=== PATIENT | female | born 1960 | race Caucasian/White ===

== ENCOUNTER 2017-10-19 07:53 | Emergency (ER) | payer BC ==
[~2017-10-19] VITALS: Ht 160 cm; Wt 77.1 kg
--- NOTE | 2017-10-19 11:24 | Diagnostic Imaging Report ---
PROCEDURE:X-RAY LEFT ELBOW, COMPLETE COMPARISON:None. INDICATIONS:LEFT ELBOW PAIN FINDINGS: No evidence of fracture, dislocation, or joint effusion. The bones are well-mineralized. The soft-tissues are unremarkable. The joint spaces are preserved. CONCLUSION: No evidence of fracture or malalignment. Dictated by: NICOLASA VALENCIA M.D. on 10/19/2017 at 9:53 Electronically approved by: NICOLASA VALENCIA M.D. on 10/19/2017 at 9:53
== END 2017-10-19 10:35 | disposition home or self-care (01) ==
LOC: ER 07:53
DX: M25.522 Pain in left elbow (principal); S50.02XA Contusion of left elbow, initial encounter; W20.8XXA Other cause of strike by thrown, projected or falling object, initial encounter; Y92.512 Supermarket, store or market as the place of occurrence of the external cause; I10 Essential (primary) hypertension
CPT/HCPCS: 99283

== ENCOUNTER 2018-05-10 23:40 | Emergency (ER) | payer BC ==
[~2018-05-10] VITALS: Ht 160 cm; Wt 77.1 kg
--- OUTSIDE RECORDS SUMMARY | 2018-05-10 23:44 | XMS REPORT | Clinical Summary ---
Author Author [facility] Organization [facility] Address Unknown Phone Unavailable Care Team Providers Care [employer] C[employer] Supervisor Name Role Phone Praneeth Aquino MD PCP Allergies Comments Active Allergy Reactions Severity Noted Date Hydrochlorothiazide Hives, Rash, 02/09/2017 Itching Only gets reaction when she personally wears them, she does get rash when other people use them on her Latex Rash 01/29/2015 Penicillins Itching 08/19/2014 Medications End Date Status Medication Sig Dispensed Refills Start Date Active meclizine (ANTIVERT) 25 Take 1 tablet 10 tablet 0 201 mg TabIndications: Dizzy, by mouth 2 6 Vertigo times daily as needed for dizziness. Active atorvastatin (LIPITOR) 20 Take 1 tablet 90 tablet 1 201 mg tabletIndications: by mouth at 6 Dyslipidemia bedtime nightly. Active cyclobenzaprine Take 1 tablet 30 tablet 0 (FLEXERIL) 10 mg by mouth 3 7 tabletIndications: Acute times daily pain of right shoulder as needed for Muscle Spasms. Active ondansetron (ZOFRAN) 4 mg Take 1 tablet 5 tablet 0 tabletIndications: by mouth 7 Intractable chronic every 8 hours migraine without aura and as needed for without status Nausea. migrainosus Active ibuprofen (MOTRIN) 800 mg Take 1 tablet 45 tablet 1 tabletIndications: by mouth 8 Intractable chronic every 8 hours migraine without aura and as needed for without status Pain. migrainosus Active SUMAtriptan (IMITREX) 25 Take 1 tablet 9 tablet 2 mg tabletIndications: by mouth at 8 Intractable chronic onset of migraine without aura and headache. without status Repeat after migrainosus 2 hours if needed. Maximum 200mg/24 hours.. Active amLODIPine (NORVASC) 5 mg Take 1 tablet 90 tablet 1 tabletIndications: by mouth 8 Hypertension, unspecified daily. type Active traMADol (ULTRAM) 50 mg Take 1 tablet 30 tablet 0 tabletIndications: by mouth 8 Post-op pain every 6 hours as needed for Pain. Active cetirizine (ZYRTEC) 10 mg Take 1 tablet 90 tablet 0 tabletIndications: Runny by mouth 8 nose daily. 12/20/2017 Discontinued ibuprofen (MOTRIN) 800 mg Take 1 tablet 45 tablet 1 tabletIndications: by mouth 7 Chronic right shoulder every 8 hours pain as needed for Pain. 12/20/2017 Discontinued SUMAtriptan (IMITREX) 25 Take 1 tablet 9 tablet 2 mg tabletIndications: by mouth at 7 Intractable chronic onset of migraine without aura and headache. without status Repeat after migrainosus 2 hours if needed. Maximum 200mg/24 hours.. 01/18/2018 Discontinued cetirizine (ZYRTEC) 10 mg Take 1 tablet 90 tablet 0 tabletIndications: Runny by mouth 7 nose daily. 12/20/2017 Discontinued amLODIPine (NORVASC) 5 mg Take 1 tablet 90 tablet 1 tablet by mouth 8 daily. 12/20/2017 Discontinued amLODIPine (NORVASC) 5 mg Take 1 tablet 90 tablet 1 tabletIndications: by mouth 8 Hypertension, unspecified daily. type 12/20/2017 Discontinued SUMAtriptan (IMITREX) 25 Take 1 tablet 9 tablet 2 mg tabletIndications: by mouth at 8 Intractable chronic onset of migraine without aura and headache. without status Repeat after migrainosus 2 hours if needed. Maximum 200mg/24 hours.. 12/20/2017 Discontinued ibuprofen (MOTRIN) 800 mg Take 1 tablet 45 tablet 1 tabletIndications: by mouth 8 Intractable chronic every 8 hours migraine without aura and as needed for without status Pain. migrainosus 12/20/2017 Discontinued ibuprofen (MOTRIN) 800 mg Take 1 tablet 45 tablet 1 tabletIndications: by mouth 8 Intractable chronic every 8 hours migraine without aura and as needed for without status Pain. migrainosus 12/20/2017 Discontinued SUMAtriptan (IMITREX) 25 Take 1 tablet 9 tablet 2 201 mg tabletIndications: by mouth at 8 Intractable chronic onset of migraine without aura and headache. without status Repeat after migrainosus 2 hours if needed. Maximum 200mg/24 hours.. 12/20/2017 Discontinued amLODIPine (NORVASC) 5 mg Take 1 tablet 90 tablet 1 tabletIndications: by mouth 8 Hypertension, unspecified daily. type Active Problems Problem Noted Date Trigger ring finger of right hand 01/07/2018 Overview: Added automatically from request for surgery [id number] Hypertension 12/20/2017 Intractable chronic migraine without aura and without status migrainosus: 12/20/2017 for yrs: meds given ///f/u with PCP as scheduled 06/26 Acute pain of right shoulder 08/31/2016 Mass of wrist 07/06/2015 Vertigo 10/29/2014 Dizzy 10/28/2014 Headache 10/28/2014 Resolved Problems Problem Noted Date Resolved Date Trigger ring finger of left hand 02/20/2017 02/04/2018 Encounters Care Team Description Date Type Specialty Brandon Sharp MD Lateral epicondylitis of left elbow (Primary Dx) 05/03/2018 Office Visit Family Practice 05/03/2018 Travel Praneeth Aquino MD 04/22/2018 Hospital Radiology Encounter 04/22/2018 Travel Praneeth Aquino MD Left elbow pain (Primary Dx) 04/03/2018 Orders Only Family Practice 04/03/2018 Travel Khushi Martel Colon Cancer Screening (Education on FIT completion) 02/27/2018 Telephone Gastroenterology Praneeth Aquino MD Preventative health care 02/26/2018 Lab Appointment Lab Praneeth Aquino MD Left elbow pain (Primary Dx); Snoring; Preventative health care 02/18/2018 Office Visit Family Practice 02/18/2018 Travel Grey Croft MD Trigger ring finger of left hand (Primary Dx) 02/04/2018 Office Visit Orthopedics Ruba Joaquin RN 01/28/2018 Nurse Triage Grey Croft MD Right ring finger trigger digit release 01/19/2018 Surgery Mitchell, Resident JuanAL 01/19/2018 Anesthesia Event Grey Croft MD Trigger ring finger of right hand (Primary Dx); Dizzy; Vertigo; Acute pain of right shoulder; Trigger ring finger of left hand; Intractable chronic migraine without aura and without status migrainosus: for yrs: meds given ///f/u with PCP as scheduled 06/2601/19/2018 Hospital Encounter Praneeth Aquino MD Left elbow pain (Primary Dx); Essential hypertension: will monitor; Runny nose 01/18/2018 Office Visit Family [facility], Resident Son Reid MD 01/14/2018 Hospital Encounter Grey Croft MD Chrane, Kelsey D, PA Trigger ring finger of right hand (Primary Dx); Post-op pain 01/14/2018 Office Visit Orthopedics Grey Croft MD Trigger ring finger of right hand (Primary Dx) 01/07/2018 Office Visit Orthopedics Breana Miranda NP 12/20/2017 Ancillary Radiology Procedure Breana Miranda NP Hypertension, unspecified type (Primary Dx); Need for influenza vaccination; Need for Tdap vaccination; Dietary counseling for Above / Below Normal BMI; Exercise counseling for Above Normal BMI Only!; Intractable chronic migraine without aura and without status migrainosus: for yrs: meds given ///f/u with PCP as scheduled 06/26 ; Left elbow pain; Screen for colon cancer 12/20/2017 Office Visit Family Practice Praneeth Aquino MD Chronic right shoulder pain; Intractable chronic migraine without aura and without status migrainosus: for yrs: meds given ///f/u with PCP as scheduled 06/2612/20/2017 Refill Family Practice Brandon Sharp MD Chronic right shoulder pain; Intractable chronic migraine without aura and without status migrainosus: for yrs: meds given ///f/u with PCP as scheduled 06/2612/20/2017 Refill Family Practice Grey Croft MD NO SHOW ENCOUNTER (Primary Dx) 12/17/2017 Office Visit Orthopedics after 05/09/2017 Immunizations Name Dates Previously Given Next Due Influenza Vaccine 11/10/2014 Influenza Vaccine, 01/25/2017 Seasonal, Injectable Influenza, 01/18/2018 Vaccine<FLUCELVAX>(Multi- Dose) Tdap (Tetanus Toxoid, 01/18/2018 (Deferred: Patient Refused) Reduced Diphtheria Toxoid And Acellular Pertussis, Absorbed) Family History Medical History Relation Name Comments Asthma Daughter Cancer Maternal Aunt UNKNOWN Cancer Maternal Aunt Hypertension Maternal Grandmother Arthritis Mother Asthma Mother Diabetes Mother Hypertension Mother Arthritis Sister Asthma Sister Relation Name Status Comments Brother Brother Alive Brother Alive Daughter Alive Daughter Father Alive Maternal Aunt Maternal Aunt Maternal Grandfather Maternal Grandmother Alive Mother Alive Paternal Grandfather Paternal Grandmother Alive Sister Alive Sister Sister Son Alive Social History Date Tobacco Use Types Packs/Day Years Used Never Smoker Smokeless Tobacco: Never Used Tobacco Cessation: Counseling Given: No Alcohol Use Drinks/Week oz/Week Comments No Sex Assigned at Date Recorded Not on file Industry Job Start Date Occupation Not on file Not on file Not on file Travel End Travel History Travel Start No recent travel history available. Last Filed Vital Signs Time Taken Vital Sign Reading 05/03/2018 9:37 AM ANGIOGRAPHY NURSE Blood Pressure 155/94 05/03/2018 9:37 AM ANGIOGRAPHY NURSE Pulse 78 05/03/2018 9:37 AM ANGIOGRAPHY NURSE Temperature 36.7 C (98 F) 05/03/2018 9:37 AM ANGIOGRAPHY NURSE Respiratory Rate 18 01/19/2018 11:15 AM ANGIOGRAPHY NURSE Oxygen Saturation 99% - Inhaled Oxygen - Concentration 05/03/2018 9:37 AM ANGIOGRAPHY NURSE Weight 84.6 kg (186 lb 9.6 oz) 05/03/2018 9:37 AM ANGIOGRAPHY NURSE Height 160 cm (5' 3") 05/03/2018 9:37 AM ANGIOGRAPHY NURSE Body Mass Index 33.05 Plan of Treatment Health Maintenance Due Date Last Done Comments Colorectal Cancer Scrn 2012 Annual (FIT/FOBT) Age 50 to 75 Breast Cancer Scrn 01/17/2018 01/17/2017, 09/29/2014 (Yearly) Cervical Cancer Scrn (3 01/18/2020 01/17/2017 Yrs) Goals Goal Patient Associated Recent Progress Patient-Stat Author Goal Type Problems ed? Eat Healthy Lifestyle No Jazmin Tuttle Procedures Comments Procedure Name Priority Date/Time Associated Diagnosis MRI ELBOW JOINT W/O Routine 04/22/2018 Left elbow pain CONTRAST 12:50 PM ANGIOGRAPHY NURSE UREA NITROGEN/CREA Routine 04/03/2018 Left elbow pain 12:50 PM ANGIOGRAPHY NURSE CREATININE Routine 02/26/2018 Left elbow pain 10:04 AM ANGIOGRAPHY NURSE MICROALBUM, URINE Routine 02/26/2018 [facility] care 10:03 AM ANGIOGRAPHY NURSE TSH Routine 02/26/2018 [facility] care 10:03 AM ANGIOGRAPHY NURSE LIVER PROFILE Routine 02/26/2018 [facility] health care 10:03 AM ANGIOGRAPHY NURSE BASIC METABOLIC PANEL Routine 02/26/2018 [facility] health care 10:03 AM ANGIOGRAPHY NURSE LIPID PROFILE Routine 02/26/2018 [facility] health care 10:03 AM ANGIOGRAPHY NURSE HEMOGLOBIN A1C Routine 02/26/2018 [facility] care 10:03 AM ANGIOGRAPHY NURSE CBC/DIFF Routine 02/26/2018 [facility] care 10:03 AM ANGIOGRAPHY NURSE ORTHO - EXTREMITY CART 01/19/2018 Trigger ring finger of 10:58 AM ANGIOGRAPHY NURSE right hand Special Needs Anesthesia Fast Track (ASA 2)Supine, hand table XRAY ELBOW 2 VIEWS MIN Routine 12/20/2017 Left elbow pain 1:40 PM CDT after 05/09/2017 Results * MRI ELBOW JOINT W/O CONTRAST (04/22/2018 12:50 PM ANGIOGRAPHY NURSE) Impressions Performed At IMPRESSION: [facility] Findings most consistent with acute on chronic lateral epicondylitis. Dictated By: Pelon Escamilla MD, 04/22/2018 1:55 PM I have reviewed the study and agree with the findings in this report. Signed By: Moises Walls DO, 04/22/2018 3:56 PM Narrative Performed At TECHNIQUE: SMS Magnetic resonance imaging of the left ELBOW was performedWITHOUT injected contrast. HISTORY:Left elbow pain and swelling COMPARISON: Elbow radiographs from 12/20/2017 DISCUSSION: Ligaments and tendons: The radial collateral ligament and common extensor tendon are thickened, but intact throughout. No edema in the lateral humeral condyle or capitellum. Ulnar nerve: Unremarkable Bone and bone marrow:There is no evidence of a fracture.No focal or infiltrative bone marrow replacing abnormality identified. Articular cartilage: No focal defect. Other soft tissues: Unremarkable Procedure Note Interface, Rad/Mammog In - 04/22/2018 4:02 PM ANGIOGRAPHY NURSE TECHNIQUE: Magnetic resonance imaging of the left ELBOW was performed WITHOUT injected contrast. HISTORY: Left elbow pain and swelling COMPARISON: Elbow radiographs from 12/20/2017 DISCUSSION: Ligaments and tendons: The radial collateral ligament and common extensor tendon are thickened, but intact throughout. No edema in the lateral humeral condyle or capitellum. Ulnar nerve: Unremarkable Bone and bone marrow: There is no evidence of a fracture. No focal or infiltrative bone marrow replacing abnormality identified. Articular cartilage: No focal defect. Other soft tissues: Unremarkable IMPRESSION IMPRESSION: Findings most consistent with acute on chronic lateral epicondylitis. Dictated By: Pelon Escamilla MD, 04/22/2018 1:55 PM I have reviewed the study and agree with the findings in this report. Signed By: Moises Walls DO, 04/22/2018 3:56 PM Performing Organization Address City/[facility]/[employer] Phone Number SMS * UREA NITROGEN/CREA (04/03/2018 12:50 PM ANGIOGRAPHY NURSE) Urea Nitrogen 11 7 - 25 mg/dL [facility] 1 Creatinine 0.50 (L) 0.6 - 1.2 mg/dL [facility] 1 GFR, Estimated >60 mL/min/1.73 m2 BT [facility] 1 GFR, Estim, >60 mL/min/1.73 m2 [facility] Afr-Am 1 Specimen Other (Specify in Comments) Performing Organization Address [facility] Phone Number MISYS [facility] 1 * CREATININE (02/26/2018 10:04 AM ANGIOGRAPHY NURSE) Creatinine 0.60 0.6 - 1.2 mg/dL BT [facility] 1 GFR, Estimated >60 mL/min/1.73 m2 BT [facility] 1 GFR, Estim, >60 mL/min/1.73 m2 BT [facility] Afr-Am 1 Specimen Blood Performing Organization Address City/[facility]/Zipcode Phone Number MISYS BT [facility] 1 * MICROALBUM, URINE (02/26/2018 10:03 AM ANGIOGRAPHY NURSE) Microalbum, 1.1 0.0 - 29.0 mg/dL BT [facility] Random 1 Creatinine, Ur 132.6 20 - 320 mg/dL [facility] 1 Urine 8.3 0 - 29 mg/g UCR [facility] Microalbumin Comment: 1 To minimize intra-individual variation, analysis of three random urine samples collected over the course of a week is recommended. Performing Organization Address [facility] Phone Number MISYS BT [facility] 1 * HEMOGLOBIN A1C (02/26/2018 10:03 AM ANGIOGRAPHY NURSE) Hemoglobin A1c 5.7 4.3 - 6.1 % BT DIAGNOSTIC IMMUNOLOGY Est Average 116.9 mg/dL BT DIAGNOSTIC Gluc IMMUNOLOGY Specimen Blood Performing Organization Address [facility] Phone Number MISYS DIAGNOSTIC IMMUNOLOGY * TSH (02/26/2018 10:03 AM ANGIOGRAPHY NURSE) TSH 3.53 0.57 - 3.74 uIU/mL BT [facility] 1 Specimen Blood Performing Organization Address [facility] Phone Number MISYS BT [facility] 1 * LIVER PROFILE (02/26/2018 10:03 AM ANGIOGRAPHY NURSE) T Protein 6.9 6.0 - 8.3 g/dL [facility] 1 Albumin 4.4 3.7 - 5.3 g/dL BT [facility] 1 T Bilirubin 0.5 0.2 - 1.2 mg/dL BT [facility] 1 Alk Phos 90 34 - 104 U/L BT [facility] 1 AST 19 13 - 39 U/L BT [facility] 1 ALT 33 7 - 52 U/L BT [facility] 1 D Bilirubin 0.1 0.0 - 0.2 mg/dL BT [facility] 1 Specimen Blood Performing Organization Address [facility] Phone Number MISYS BT [facility] 1 * LIPID PROFILE (02/26/2018 10:03 AM ANGIOGRAPHY NURSE) Cholesterol 223 mg/dL [facility] Comment: 1 REFERENCE RANGE: Desirable: <200 mg/dL Borderline: 200-240 mg/dL High Risk: >240 mg/dL Triglyceride 156 (H) <150 mg/dL [facility] Comment: 1 REFERENCE RANGE: Normal: <150 mg/dL Borderline High: 150-199 mg/dL High: 200-499 mg/dL Very High: >av=171 mg/dL HDL 46 mg/dL [facility] Comment: 1 Increased CHD risk: <40 mg/dL Decreased CHD risk: >60 mg/dL LDL 146 mg/dL [facility] Comment: 1 REFERENCE RANGE: Optimal: <100 mg/dL Near Optimal: 100-129 mg/dL Borderline High: 130-159 mg/dL High: 160-189 mg/dL Very High: >lb=880 mg/dL Specimen Blood Performing Organization Address City/State/Zipcode Phone Number MISYS BT [facility] 1 * CBC/DIFF (02/26/2018 10:03 AM ANGIOGRAPHY NURSE) WBC 6.4 4.5 - 11.0 K/uL BT [facility] 2 RBC 4.42 4.20 - 5.40 M/uL BT [facility] 2 Hemoglobin 12.5 12.0 - 16.0 g/dL BT [facility] 2 Hematocrit 37.8 37.0 - 47.0 % BT [facility] 2 MCV 86 82 - 92 fL BT [facility] 2 MCH 28.3 27.0 - 32.0 pg BT [facility] 2 MCHC 33.1 32.0 - 36.0 g/dL BT [facility] 2 RDW 38.5 36.4 - 46.3 fL BT [facility] 2 Platelet 293 150 - 400 K/uL BT [facility] 2 Mean Platelet 10.5 9.4 - 12.4 fL BT [facility] Volume 2 Percent NRBC 0.0 BT [facility] 2 Absolute NRBC 0.00 BT [facility] 2 Neutrophil 55.8 34.0 - 70.0 % BT [facility] 2 Lymphocyte 35.2 20.0 - 50.0 % BT [facility] 2 Monocyte 6.5 5.0 - 12.0 % BT [facility] 2 Eosinophil 1.7 0.7 - 5.0 % BT [facility] 2 Basophil 0.5 0.1 - 1.2 % BT [facility] 2 Pct Immat Gran 0.3 0.0 - 0.5 BT [facility] 2 Neutrophil, Abs 3.59 1.56 - 6.13 K/uL BT [facility] 2 Lymphocyte, Abs 2.27 1.18 - 3.74 K/uL BT [facility] 2 Monocyte, Abs 0.42 (H) 0.24 - 0.36 K/uL BT [facility] 2 Eosinophil, Abs 0.11 0.04 - 0.36 K/uL BT [facility] 2 Basophil, Abs 0.03 0.01 - 0.08 K/uL BT [facility] 2 Absol Immat 0.02 0.00 - 0.03 K/uL BT [facility] Gran 2 Specimen Blood Performing Organization Address [facility] Phone Number MISYS BT [facility] 2 * BASIC METABOLIC PANEL (02/26/2018 10:03 AM ANGIOGRAPHY NURSE) CO2 26 21 - 31 mmol/L BT [facility] 1 Chloride 103 98 - 107 mmol/L BT [facility] 1 Potassium 4.0 3.5 - 5.1 mmol/L BT [facility] 1 Sodium 139 136 - 145 mmol/L BT [facility] 1 Glucose 92 70 - 110 mg/dL BT [facility] 1 Urea Nitrogen 16 7 - 25 mg/dL BT [facility] 1 Creatinine 0.60 0.6 - 1.2 mg/dL BT [facility] 1 Anion Gap 10 BT [facility] 1 Calcium 9.5 8.6 - 10.3 mg/dL BT [facility] 1 GFR, Estimated >60 mL/min/1.73 m2 BT [facility] 1 GFR, Estim, >60 mL/min/1.73 m2 BT [facility] Afr-Am 1 Specimen Blood Performing Organization Address [facility] Phone Number MISYS BT [facility] 1 * XRAY ELBOW 2 VIEWS MIN (12/20/2017 1:40 PM CDT) Impressions Performed At IMPRESSION: [facility] No acute radiographic abnormality. Dictated By: Les Riojas MD, 12/20/2017 1:55 PM I have reviewed the study and agree with the findings in this report. Signed By: Moises Walls DO, 12/20/2017 3:49 PM Narrative Performed At Left elbow x-ray - 2 view(s) SMS HISTORY:left elbow pain, injury COMPARISON: None DISCUSSION: Bone: No acute displaced fracture. No aggressive osseous lesion. Joints: The joint spaces are well-maintained. No dislocation. Soft tissues: Appear unremarkable. Procedure Note Interface, Rad/Mammog In - 12/20/2017 3:54 PM CDT Left elbow x-ray - 2 view(s) HISTORY: left elbow pain, injury COMPARISON: None DISCUSSION: Bone: No acute displaced fracture. No aggressive osseous lesion. Joints: The joint spaces are well-maintained. No dislocation. Soft tissues: Appear unremarkable. IMPRESSION IMPRESSION: No acute radiographic abnormality. Dictated By: Les Riojas MD, 12/20/2017 1:55 PM I have reviewed the study and agree with the findings in this report. Signed By: Moises Walls DO, 12/20/2017 3:49 PM Performing Organization Address City/State/Zipcode Phone Number SMS after 05/09/2017 Insurance Type Payer Benefit Subscriber ID Effective Phone Address Plan / Dates Group BC/BS BC/BS PPO xxxxxxxxxxxx 2017-P [phone] [address] [place] [id number] [employer] PLAN xxxxxx 2017- [phone] [id number] [place] [address] (Self)
--- OUTSIDE RECORDS SUMMARY | 2018-05-10 23:44 | XMS REPORT ---
Author Author [facility] Address Unknown Phone Unavailable Care Team Providers Care Cooky Machine Operator Name Role Phone Srini FREY Unavailable Unavailable Problems This patient has no known problems. Allergies, Adverse Reactions, Alerts This patient has no known allergies or adverse reactions. Medications This patient has no known medications. Encounters Start Date/Time End Date/Time Encounter Type Admission Type Attending [facility] Facility Care Department Encounter ID 2018-05-03 09:37:47 2018-05-03 09:37:47 Outpatient [facility] [id number] 2018-04-22 09:57:43 2018-04-22 09:57:43 Outpatient [facility] [id number] 2018-03-18 00:00:00 2018-03-18 00:00:00 Outpatient [facility] [id number] 2018-03-01 00:00:00 2018-03-01 00:00:00 Outpatient [facility] [id number] 2018-02-18 00:00:00 2018-02-18 00:00:00 Outpatient [facility] [id number] 2018-02-04 10:06:26 2018-02-04 10:06:26 Outpatient [facility] [id number] 2018-01-19 06:30:00 2018-01-19 06:30:00 Outpatient [facility] [id number] 2018-01-19 00:00:00 2018-01-19 00:00:00 Outpatient [facility] [id number] 2018-01-19 00:00:00 2018-01-19 00:00:00 Outpatient [facility] [id number] 2018-01-18 14:42:23 2018-01-18 14:42:23 Outpatient [facility] [id number] 2018-01-14 11:41:20 2018-01-14 11:41:20 Outpatient [facility] [id number] 2018-01-14 09:55:29 2018-01-14 09:55:29 Outpatient [facility] [id number] 2018-01-14 00:00:00 2018-01-14 00:00:00 Outpatient [facility] [id number] 2018-01-07 09:21:12 2018-01-07 09:21:12 Outpatient [facility] [id number] 2017-12-20 13:35:07 2017-12-20 13:35:07 Outpatient [facility] [id number] 2017-12-20 10:22:05 2017-12-20 10:22:05 Outpatient [facility] [id number] 2017-12-20 00:00:00 2017-12-20 00:00:00 Outpatient [facility] [id number] 2017-12-17 00:00:00 2017-12-17 00:00:00 Outpatient [facility] [id number] 2017-06-04 00:00:00 2017-06-04 00:00:00 Outpatient [facility] [id number] 2017-06-04 00:00:00 2017-06-04 00:00:00 Outpatient [facility] [id number] 2017-04-17 10:49:26 2017-04-17 10:49:26 Outpatient [facility] [id number] 2017-04-09 00:00:00 2017-04-09 00:00:00 Outpatient [facility] [id number] 2017-04-02 10:56:53 2017-04-02 10:56:53 Outpatient [facility] [id number] 2017-03-20 14:49:37 2017-03-20 14:49:37 Outpatient [facility] [id number] 2017-02-20 11:11:09 2017-02-20 11:11:09 Outpatient [facility] [id number] 2017-02-13 00:00:00 2017-02-13 00:00:00 Outpatient [facility] [id number] 2017-02-09 09:53:01 2017-02-09 09:53:01 Outpatient [facility] [id number] 2017-02-05 09:43:03 2017-02-05 09:43:03 Outpatient [facility] [id number] 2017-01-25 10:41:57 2017-01-25 10:41:57 Outpatient [facility] [id number] 2017-01-18 09:46:18 2017-01-18 09:46:18 Outpatient [facility] [id number] 2017-01-18 09:46:16 2017-01-18 09:46:16 Outpatient [facility] [id number] 2017-01-17 10:10:22 2017-01-17 10:10:22 Outpatient [facility] [id number] 2017-01-17 09:17:13 2017-01-17 09:17:13 Outpatient [facility] [id number] 2016-12-27 11:03:16 2016-12-27 11:03:16 Outpatient [facility] [id number] 2016-12-15 10:15:41 2016-12-15 10:15:41 Outpatient [facility] [id number] 2016-12-07 08:53:15 2016-12-07 08:53:15 Outpatient [facility] [id number] 2016-10-19 00:00:00 2016-10-19 00:00:00 Outpatient [facility] [id number] 2016-10-11 00:00:00 2016-10-11 00:00:00 Outpatient [facility] [id number] 2016-10-09 00:00:00 2016-10-09 00:00:00 Outpatient [facility] [id number] 2016-09-13 07:44:53 2016-09-13 07:44:53 Outpatient [facility] [id number] 2016-09-07 09:24:47 2016-09-07 09:24:47 Outpatient [facility] [id number] 2016-08-31 09:32:32 2016-08-31 09:32:32 Emergency [facility] [id number] 2016-08-31 06:02:25 2016-08-31 06:02:25 Emergency [facility] [id number] Results Test Description Test Time Test Comments Text Results Atomic Results Result Comments ELBOW LEFT COMPLETE 2017-10-19 09:53:00 [place] [address] Patient Name: MARY POSADA MR #: [id number] : 1960 Age/Sex: 57/F Req #: [id number] Adm Physician: Ordered by: MARK FREY MD Report #: [id number] Location: ER Room/Bed: Procedure: [id number] DX/ELBOW LEFT COMPLETE Exam Date: 10/19/17 Exam Time: 0820 REPORT STATUS: Signed PROCEDURE: X-RAY LEFT ELBOW, COMPLETE COMPARISON: None. INDICATIONS: LEFT ELBOW PAIN FINDINGS: No evidence of fracture, dislocation, or joint effusion. The bones are well-mineralized. The soft-tissues are unremarkable. The joint spaces are preserved. CONCLUSION: No evidence of fracture or malalignment. Dictated by: NICOLASA VALENCIA M.D. on 10/19/2017 at 9:53 Electronically approved by: NICOLASA VALENCIA M.D. on 10/19/2017 at 9:53 Dictated By: NICOLASA VALENCIA MD 2 Transcribed By: ALEXSANDRA on 10/19/17952 COPY TO: MARK FREY MD
--- NOTE | 2018-05-11 01:06 | Diagnostic Imaging Report ---
Ankle complete CPT CODE: 43936 HISTORY: Fall TECHNIQUE: Three views right ankle obtained COMPARISON: None. FINDINGS: Well-corticated osseous fragment lies inferior to the distal tibia suggestive of remote fracture. No evidence of donor site. Distal fibula is intact. Ankle mortise remains symmetric. No significant soft tissue swelling at the malleoli. The calcaneus appears intact with small posterior and plantar spurs. The visualized portions of the midfoot and forefoot are intact. IMPRESSION: No evidence of acute fracture or dislocation involving the ankle. Findings suggestive of remote injury at the medial malleolus. Signed by: Dr. Tha Kohli MD on 05/11/2018 1:02 AM
--- NOTE | 2018-05-11 01:08 | Diagnostic Imaging Report ---
Foot complete CPT code: 49420 Indication: Fall ^s/p injury ^[id number] ^0052 ^Y Technique: A.P., oblique and lateral views of the right foot obtained. Comparison: Ankle x-rays obtained Findings: The area of pain is not indicated or marked. Calcaneus is intact with small posterior plantar spurs. The midfoot is intact. No evidence of displaced fracture or dislocation involving any of the digits. A bone island is in the head of the second metatarsal. There is an ununited osseous fragment at the inferior aspect of the tibia without donor site. Distal fibula is intact. No radiopaque foreign bodies in the soft tissues. IMPRESSION: No acute traumatic pathology. Findings suggestive of remote injury at the medial malleolus. Signed by: Dr. Tha Kohli MD on 05/11/2018 1:05 AM
== END 2018-05-11 02:00 | disposition home or self-care (01) ==
LOC: ER 23:40
DX: S93.491A Sprain of other ligament of right ankle, initial encounter (principal); S93.611A Sprain of tarsal ligament of right foot, initial encounter; X50.1XXA Overexertion from prolonged static or awkward postures, initial encounter; Y93.01 Activity, walking, marching and hiking; Y99.0 Civilian activity done for income or pay; I10 Essential (primary) hypertension; R01.1 Cardiac murmur, unspecified
CPT/HCPCS: 99283

== ENCOUNTER 2019-05-20 20:45 | Emergency (ER) | payer BC ==
[~2019-05-20] VITALS: Ht 160 cm; Wt 77.1 kg
[2019-05-20] MEDS ORDERED: FAMOTIDINE 20 MG/2 ML VIAL IV STA (20:48)
[2019-05-20] MEDS ORDERED: SODIUM CHLORIDE 0.9% 1000ML 1,000 ML IV STA (20:48)
[2019-05-20] MEDS ORDERED: KETOROLAC TROMETHAMINE 30 MG/ML VIAL IV STA (20:48)
[2019-05-20] MEDS ORDERED: ONDANSETRON HCL INJ 2MG/ML 2ML 2 MG/ML VIAL IV STA (20:48)
[2019-05-20] MEDS ORDERED: ACETAMINOPHEN 325 MG TAB PO ONE (21:15)
[2019-05-20] MEDS ORDERED: CEFEPIME HCL 1 GM VIAL IV SCH (21:15)
[2019-05-20] MEDS ORDERED: CEFEPIME 1GM/NS 0.9% 50 ML 50 ML IV ONE (21:30)
[2019-05-20 22:19] LABS: BASOPHILS % 0.2 % (0.0-1.0); EOSINOPHILS % 0.3 % (0.0-6.0); HEMATOCRIT 42.8 % (34.2-44.1); HEMOGLOBIN 14.1 g/dL (12.0-16.0); LYMPHOCYTES # (AUTO) 0.8 (1.0-3.2); LYMPHOCYTES % 6.3 % (18.0-39.1); MEAN CORPUSCULAR HEMOGLOBIN 27.9 pg (28-32); MEAN CORPUSCULAR HGB CONC 32.9 g/dL (31-35); MEAN CORPUSCULAR VOLUME 84.8 fL (81-99); MONOCYTES # (AUTO) 0.8 (0.2-0.8); MONOCYTES % 5.8 % (4.4-11.3); NEUTROPHILS # (AUTO) 11.4 (2.1-6.9); NEUTROPHILS % 86.9 % (38.7-80.0); PLATELET COUNT 296 x10e3/uL (140-360); RED BLOOD COUNT 5.05 x10e6/uL (3.6-5.1); RED CELL DISTRIBUTION WIDTH 12.9 % (11.7-14.4)
--- NOTE | 2019-05-20 22:29 | Diagnostic Imaging Report ---
EXAMINATION: CHEST 2 VIEWS INDICATION: Fever. COMPARISON: None FINDINGS: TUBES and LINES: None. LUNGS: Lungs are moderately inflated. Mild patchy left basilar opacity. No evidence of lobar consolidation or pulmonary edema. PLEURA: No pleural effusion or pneumothorax. HEART AND MEDIASTINUM: The cardiomediastinal silhouette is unremarkable. BONES AND SOFT TISSUES: No acute osseous lesion. Soft tissues are unremarkable. UPPER ABDOMEN: No free air under the diaphragm. IMPRESSION: Mild patchy left basilar opacity, likely atelectasis, although infection is possible in the appropriate clinical setting. No evidence of lobar consolidation. Signed by: Dr. Nash Chung MD on 05/20/2019 10:26 PM
[2019-05-20 22:35] LABS: ALANINE AMINOTRANSFERASE 54 IU/L (0-55); ALBUMIN 4.5 g/dL (3.5-5.0); ALBUMIN/GLOBULIN RATIO 1.2 (0.8-2.0); ALKALINE PHOSPHATASE 119 IU/L (40-150); ANION GAP 13.2 mmol/L (8-16); BLOOD UREA NITROGEN 17 mg/dL (7-26); BUN/CREATININE RATIO 21 (6-25); CALCIUM 9.9 mg/dL (8.4-10.2); CARBON DIOXIDE 28 mmol/L (22-29); CHLORIDE 104 mmol/L (98-107); CREATINE KINASE 80 IU/L (29-168); CREATININE, SERUM 0.82 mg/dL (0.57-1.11); EST GLOMERULAR FILTRATION RATE > 60 ML/MIN (60-); GLUCOSE 141 mg/dL (74-118); POTASSIUM 4.2 mmol/L (3.5-5.1); SODIUM 141 mmol/L (136-145)
[2019-05-20] MEDS ORDERED: IOPAMIDOL 370 MG/ML 200 ML INFUS..BTL INJ ONE (22:56)
[2019-05-20] MEDS ORDERED: SODIUM CHLORIDE 0.9% 50ML 50 ML ONE (22:56)
[2019-05-20 23:45] LABS: AMPHETAMINES SCREEN,URINE NEGATIVE (NEGATIVE); BENZODIAZEPINES SCREEN,URINE NEGATIVE (NEGATIVE); CLARITY,URINE CLOUDY (CLEAR); COLOR,URINE YELLOW (YELLOW); PHENCYCLIDINE SCREEN,URINE NEGATIVE (NEGATIVE)
[2019-05-20 23:46] LABS: BILIRUBIN,URINE NEGATIVE (NEGATIVE); KETONES,URINE NEGATIVE (NEGATIVE); LEUKOCYTE ESTERASE ,URINE NEGATIVE (NEGATIVE); NITRITE,URINE NEGATIVE (NEGATIVE); PROTEIN,URINE DIPSTICK 1+ (NEGATIVE); URINE UROBILINOGEN 0.2 mg/dL (0.2 - 1)
[2019-05-20 23:46] LABS: STREPTOCOCCUS GRP A ANTIGEN NEGATIVE (NEGATIVE)
[2019-05-20 23:55] LABS: BACTERIA,URINE MANY /HPF; EPITHELIAL CELLS,URINE FEW /LPF; RBC,URINE 0-5 /HPF (0-5); WBC,URINE (MAN) 0-5 /HPF (0-5)
[2019-05-20 23:56] LABS: AMORPHOUS SEDIMENT,URINE MANY (FEW)
[2019-05-21] MEDS ORDERED: SODIUM CHLORIDE 0.9% 1000ML 1,000 ML ONE (00:26)
[2019-05-21] MEDS ORDERED: SODIUM CHLORIDE 0.9% 1000ML 1,000 ML IV SCH (00:30)
--- NOTE | 2019-05-21 00:45 | Diagnostic Imaging Report ---
TECHNIQUE: CT of the chest, abdomen and pelvis with intravenous contrast INDICATION: Nausea, vomiting, fever. COMPARISON: None. TECHNIQUE: Chest, Abdomen and pelvis were scanned utilizing a multidetector helical scanner from the thoracic inlet to the pubic symphysis after administration of IV contrast (100 cc of Isovue 370). No oral contrast was administered. Coronal and sagittal reformations were obtained. Routine protocol was performed. COMPLICATIONS: None RADIATION DOSE: Total DLP: 878.5 mGy*cm Dose modulation, iterative reconstruction, and/or weight based adjustment of the mA/kV was utilized to reduce the radiation dose to as low as reasonably achievable. FINDINGS: LINES AND TUBES: None LUNGS AND AIRWAYS: The central airways are patent. No evidence of pneumonia or pulmonary edema. Mild dependent subsegmental atelectasis. PLEURA: The pleural spaces are clear. HEART AND MEDIASTINUM: There is a right-sided mildly hypodense thyroid nodule, measuring up to 1.7 cm. No significant mediastinal, hilar or axillary lymphadenopathy is seen. No cardiomegaly or pericardial effusion. Coronary atherosclerosis. HEPATOBILIARY: Diffuse hepatic steatosis. No focal hepatic lesions. No biliary ductal dilatation. SPLEEN: No splenomegaly. PANCREAS: No focal masses or ductal dilatation. ADRENALS: No adrenal nodules. KIDNEYS/URETERS: No evidence of hydronephrosis or solid mass. Bilateral renal cortical scarring. Subcentimeter left lower pole renal hypodensity is too small to characterize, but likely represents a cyst. Punctate 1 mm right mid pole nonobstructing renal stone (coronal image 72). PELVIC ORGANS/BLADDER: Unremarkable. PERITONEUM / RETROPERITONEUM: No free air or fluid. LYMPH NODES: No lymphadenopathy. VESSELS: Unremarkable. GI TRACT: There is possible mild wall thickening in the transverse and descending colon. No evidence of bowel obstruction. Scattered colonic diverticulosis without CT evidence of diverticulitis. BONES AND SOFT TISSUES: Unremarkable. IMPRESSION: Possible mild wall thickening in the transverse and descending colon, which may represent mild colitis in the setting of diarrhea. Diffuse hepatic steatosis. Punctate 1 mm right mid pole nonobstructing renal stone. Coronary atherosclerosis. Right thyroid nodule, measuring up to 1.7 cm. Follow-up nonemergent thyroid ultrasound is recommended for further evaluation. Signed by: Dr. Nash Chung MD on 05/21/2019 12:42 AM
[2019-05-21 01:05] LABS: INFLUENZAE A&B ANTIGEN (RAPID) NEGATIVE (NEGATIVE)
== END 2019-05-21 01:59 | disposition home or self-care (01) ==
LOC: ER 20:45
DX: R11.2 Nausea with vomiting, unspecified (principal); K52.9 Noninfective gastroenteritis and colitis, unspecified; K51.90 Ulcerative colitis, unspecified, without complications
CPT/HCPCS: 36415; 71046; 71260; 74177; 80053; 80307; 81001; 82550; 82553; 83518; 83605; 83690; 84484; 85025; 87040; 87070; 87400; 93005; 99284; J0692; J7030 ×2; Q9967; J1885; J2405